=== PATIENT | male | born 1995 | race Caucasian/White ===

== ENCOUNTER 2017-01-02 18:42 | Emergency (ER) | payer OTHER ==
[~2017-01-02] VITALS: Ht 182.9 cm; Wt 72.7 kg
[~2017-01-02 18:42] MED LIST: ABILIFY5 MG OR; CEFTIN500 MG OR; CLONIDINE0.2 MG OR; CONCERTA36 MG OR; CONCERTA54 MG PO; FLONASE NASAL50 MCG; FOCALIN5 MG OR; GEODON80 MG PO; INTUNIV2 MG OR; PREVACID30 M2 OR; ULTRAM50 M1 PO; ZOFRAN ODT4 MG OR
[2017-01-02] MEDS ORDERED: AMOXICILLIN500 MG PO (19:55)
[2017-01-02] MEDS ORDERED: PERCOCET 5/325M1 TAB PO (19:55)
[2017-01-02 21:00] VITALS: BP 135/68
== END 2017-01-02 21:00 | disposition home or self-care (01) | DRG 914 ==
LOC: ED 18:42
DX: S09.93XA Unspecified injury of face, initial encounter (principal); R22.0 Localized swelling, mass and lump, head; K08.89 Other specified disorders of teeth and supporting structures; V86.49XA Person injured while boarding or alighting from other special all-terrain or other off-road motor vehicle, initial encounter; Y93.I9 Activity, other involving external motion; Y92.007 Garden or yard of unspecified non-institutional (private) residence as the place of occurrence of the external cause

== ENCOUNTER 2017-04-02 16:45 | Observation (INO) | payer OTHER ==
[~2017-04-02] VITALS: Ht 188 cm; Wt 66.2 kg
[~2017-04-02 16:45] MED LIST changes: +AMOXICILLIN500 MG PO; +PERCOCET 5/325M1 TAB PO
[2017-04-02 17:38] LABS: HEMATOCRIT 48.6 % (39.0-50.0); IMMATURE GRANULOCYTES 0.3 % (0.0-1.0); MEAN CELL VOLUME 86.9 fL CALC (80.0-100.0); MEAN CORPUSCULAR HGB 30.4 pG CALC (26.0-32.0); NEUT# 8.15 thou/uL (1.82-7.42); RED BLOOD COUNT 5.59 mill/uL (4.70-6.10); RED CELL DISTRI WIDTH 11.5 % (11.5-15.5)
[2017-04-02 17:52] LABS: ALBUMIN 5.3 g/dL (3.2-5.0); ALKALINE PHOSPHATASE 84 u/l (38-126); AMYLASE 126 u/l (30-110); ANION GAP 19 (6-22 (CALC)); BILIRUBIN, TOTAL 0.8 mg/dL (0.0-1.4); BUN 17 mg/dL (8-21); BUN/CREATININE RATIO 16 (12-20 (CALC)); CALCIUM 10.3 mg/dL (8.4-10.2); CARBON DIOXIDE 28 mmol/l (22-30); CHLORIDE 100 mmol/l (95-108); CREATININE 1.1 mg/dL (0.7-1.3); GFR > 60 ML/MIN (>=60 (CALC)); GFR FOR AFR.AMER. > 60 ML/MIN (>=60 (CALC)); GLUCOSE 136 mg/dL (70-106); LIPASE 164 u/l (23-300); POTASSIUM 3.6 mmol/l (3.5-5.1); SGOT/AST 22 u/l (17-59); SGPT/ALT 31 u/l (21-72); SODIUM 144 mmol/l (137-146)
--- NOTE | 2017-04-02 18:00 | NUR ---
PT WITH IV ESTABLISHED, BLOOD DRAWN, MEDS PROVIDED ORDERED. GRANDMOTHER AT BEDSIDE.
--- NOTE | 2017-04-02 19:30 | NUR ---
PT AWARE OF PENDING ADMISSION FOR ACUTE APPENDICITIS. PT PROVIDED NICOTINE PATCH PER REQUEST.
[2017-04-02 20:15] LABS: URINE BLOOD DIPSTICK NEGATIVE (NEGATIVE); URINE GLUCOSE - DIPSTICK NEGATIVE (NEGATIVE); URINE KETONE NEGATIVE (NEGATIVE); URINE LEUK ESTERASE NEGATIVE (NEGATIVE); URINE NITRITE - DIPSTICK NEGATIVE (Negative); URINE PH 6.5 (4.5-8.0); URINE PROTEIN - DIPSTICK TRACE mg/dL (NEG-TRACE)
[2017-04-02 20:17] LABS: URINE BILIRUBIN - DIPSTICK NEGATIVE (NEGATIVE); URINE CLARITY CLEAR; URINE COLOR DK. YELLOW
[2017-04-02 20:19] LABS: BARBITURATES NEGATIVE (NEGATIVE); COCAINE NEGATIVE (NEGATIVE); METHADONE NEGATIVE (NEGATIVE); OXCYCODONE NEGATIVE (NEGATIVE); TETRAHYDROCANNABIONOL POSITIVE (NEGATIVE); TRICYLIC ANTIDEPRESSANTS NEGATIVE (NEGATIVE)
--- NOTE | 2017-04-02 20:54 | NUR ---
REPORT RECEIVED FROM NOEL VELAZQUEZ
--- NOTE | 2017-04-02 21:10 | NUR ---
Admission Note Report Given to: SHERRI VELAZQUEZ Transported by: Wheelchair X Stretcher Transported with: X Nurse Transporter X Patent IV O2 Phlebotomist PT LEFT ER IN STABLE CONDIITON
[2017-04-02 21:26] VITALS: BP 133/54
--- NOTE | 2017-04-02 21:45 | NUR ---
PATIENT ADMITTED FROM ER VIA STRETCHER WITH ER STAFF IN ATTENDANCE. PATIENT ABLE TO GET OFF STRETCHER TO THE STANDING SCALE AND THEN TO BED. PATIENT IS AWAKE ALERT AND ORIENTED ADMITTED FOR ACUTE APPY. PATIENT IS NPO FOR POSSIBLE OR TONIGHT. PATIENT WITH RLQ PAIN THAT STARTED LAST NIGHT AROUND 2100. STATES THAT HE HAD 1 EPISODE OF VOMITTING AND LAST BM WAS LAST NIGHT AND IT WAS"BLACK AND TARRY". IV SITE TO LEFT AC-SITE APPEARS HEALTHY AT THIS TIME. ORIENTED TO ROOM AND SURROUNDINGS. SAFETY PRECAUTIONS REVIEWED WITH PATIENT AND FAMILY MEMBERS. CALL LIGHT IN REACH. WILL CONT TO MONITOR.
--- NOTE | 2017-04-02 22:15 | NUR ---
DR. ALEXANDRE IN TO SEE PATIENT. PATIENT UP TO BR TO SHOWER. IVF NS HUNG ORDERED AND INFUSING AT 150CC/HR VIA LEFT AC SITE. PATIENT REMAINS NPO FOR OR TONIGHT. FAMILY REMIANS AT BEDSIDE. SAFETY PRECAUTIONS REINFORCED. CALL LIGHT IN REACH. WILL CONT TO MONITOR.
--- NOTE | 2017-04-02 22:44 | NUR ---
OR CHECK LIST AND OR CONSENT COMPLETED PER PROTOCOL. PATIENT TO OR VIA STRETCHER WITH OR STAFF AND FAMILY MEMBERS IN ATTENDANCE.
[2017-04-03] VITALS (9 sets, daily range): BP systolic 108–125; BP diastolic 38–68
--- NOTE | 2017-04-03 01:45 | NUR ---
PATIENT RETURNED TO THE ROOM FROM PACU WITH PACU STAFF IN ATTENDANCE. PATIENT IS AWAKE ALERT AND ORIENTEDX3. PATIENT WITH IVF NS PATENT AND INFUSING AT 150CC/HR VIA LEFT AC SITE-APPEARS HEALTHY AT THIS TIME. PATIENT TAKING ICE CHIPS AT THIS TIME-CHARLES WELL. ABD DRESSING X4-CDI AT THIS TIME. SAFETY PRECAUTIONS REINFORCED WITH PATIENT. MONITORING VS PER PROTOCOL. CALL LIGHT IN REACH. WILL CONT TO MONITOR.
--- NOTE | 2017-04-03 02:08 | NUR ---
PATIENT TAKING PO FLUIDS WELL. MEDICATED FOR POST-OP PAIN WITH DILAUDID 0.5MG IVP ORDERED. CONT TO MONITOR VS. CALL LIGHT IN REACH. WILL CONT TO MONITOR.
--- NOTE | 2017-04-03 03:56 | NUR ---
PATIENT RESTING IN BED AND APPEARS SLEEPING WITH EYES CLOSED. CONT TO MONITOR VS AND RECORD. IVF PATENT AND INFUSING ORDERED. CALL LIGHT IN REACH.WILL CONT TO MONITOR.
[2017-04-03 06:03] LABS: HEMATOCRIT 38.3 % (39.0-50.0); HEMOGLOBIN 13.4 g/dl (14.0-18.0); IMMATURE GRANULOCYTES 0.3 % (0.0-1.0); MEAN CELL VOLUME 88.2 fL CALC (80.0-100.0); MEAN CORPUSCULAR HGB 30.9 pG CALC (26.0-32.0); NEUT# 7.08 thou/uL (1.82-7.42); RED BLOOD COUNT 4.34 mill/uL (4.70-6.10); RED CELL DISTRI WIDTH 11.8 % (11.5-15.5)
--- NOTE | 2017-04-03 07:25 | NUR ---
RECEIVED BEDSIDE REPORT FROM EDMOND VELAZQUEZ. RESTING IN BED WITH EYES CLOSED, AWAKENS EASILY. RESPS EVEN AND UNLABORED ON ROOM AIR, TELE MONITOR IN PLACE. VOICES NO NEEDS AT THIS TIME. PLAN OF CARE DISCUSSED. SAFETY PRECAUTIONS REINFORCED. BED IN LOWEST POSITON WITH WHEELS LOCKED. CALL LIGHT WITHIN REACH. ENCOURAGED PT TO CALL FOR ANY NEEDS.
--- NOTE | 2017-04-03 08:13 | NUR ---
AMBULATING IN HALLWAY WITH SYEADY GAIT. TOLERATED WITHOUT C/O ABD PAIN OR NAUSEA.
--- NOTE | 2017-04-03 08:45 | NUR ---
MEDICATED WITH PERCOCET PO FOR C/O 11/18 RLQ PAIN. ENCOURAGED PT TO AMBULATE IN HALLWAY FREQUENTLY. #20 LAC INFUSING WITHOUT DIFFICULTY, SITE APPEARS HEALTHY. CALL LIGHT WITHIN REACH. WILL CONTINUE TO MONITOR.
--- NOTE | 2017-04-03 09:25 | NUR ---
DR ALEXANDRE IN WITH PT, NEW ORDERS RECEIVED.
[2017-04-03 09:53] LABS: HEMATOCRIT 37.9 % (39.0-50.0); HEMOGLOBIN 13.2 g/dl (14.0-18.0); MEAN CELL VOLUME 88.1 fL CALC (80.0-100.0); MEAN CORPUSCULAR HGB 30.7 pG CALC (26.0-32.0); MEAN CORPUSCULAR HGB CONC 34.8 g/L CALC (32.0-36.0); RED BLOOD COUNT 4.3 mill/uL (4.70-6.10); RED CELL DISTRI WIDTH 11.9 % (11.5-15.5)
--- NOTE | 2017-04-03 12:00 | NUR ---
RESTING IN BED WITH EYES CLOSED, AWAKENS EASILY. [id number] PT TO WAKE UP TO EAT LUNCH AND AMBULATED IN HALLWAY. CALL LIGHT WITHIN REACH.
--- NOTE | 2017-04-03 13:32 | NUR ---
AMBULATING IN HALLWAY WITH STEADY GAIT. TOLERATING WITHOUT C/O DISCOMFORT.
--- NOTE | 2017-04-03 15:25 | NUR ---
MEDICATED WITH PERCOCET PO FOR C/O 11/18 RLQ PAIN AND TYMPANIC TEMP 100.6. PO FLUIDS OFFERED. CALL LIGHT WITHIN REACH.
--- NOTE | 2017-04-03 16:57 | NUR ---
Discharge instructions given. Patient verbalizes understanding of same. Discharged in stable condition via Wheelchair to Home with family. All belongings sent with pt.
== END 2017-04-03 16:54 | disposition home or self-care (01) | DRG 343 ==
LOC: ED 16:45 → ED-I 19:42 → ED 19:59 → MS2 20:00
PROVIDERS: Emergency Medicine; ADMIT Surgery; ATTEND Surgery
PROC: 0DTJ4ZZ Resection of Appendix, Percutaneous Endoscopic Approach (ICD-10-PCS; principal; 2017-04-02)
DX: K35.80 Unspecified acute appendicitis (principal); J45.909 Unspecified asthma, uncomplicated; K21.9 Gastro-esophageal reflux disease without esophagitis
CPT/HCPCS: G0378; J2710; Q9967

== ENCOUNTER 2017-06-16 12:25 | Emergency (ER) | payer SELFPAY ==
[~2017-06-16] VITALS: Ht 188 cm; Wt 69.0 kg
[2017-06-16] MEDS ORDERED: BACTRIM DS1 TAB PO (14:20)
[2017-06-16 14:21] VITALS: BP 120/60
== END 2017-06-16 14:30 | disposition home or self-care (01) | DRG 603 ==
LOC: ED 12:25
PROC: 0H9FXZZ Drainage of Right Hand Skin, External Approach (ICD-10-PCS; principal; 2017-06-16)
DX: L02.511 Cutaneous abscess of right hand (principal); W22.8XXA Striking against or struck by other objects, initial encounter; Y93.89 Activity, other specified; Y92.89 Other specified places as the place of occurrence of the external cause

== ENCOUNTER 2017-09-09 20:07 | Emergency (ER) | payer SELFPAY ==
[~2017-09-09] VITALS: Ht 188 cm; Wt 72.0 kg
[~2017-09-09 20:07] MED LIST changes: +BACTRIM DS1 TAB PO
[2017-09-09] MEDS ORDERED: CEPHALEXIN500 M1 PO (20:53)
[2017-09-09] MEDS ORDERED: BACTRIM DS1 TAB PO (20:53)
[2017-09-09] MEDS ORDERED: NO HOME MED (21:06)
[2017-09-09 21:11] VITALS: BP 127/56
== END 2017-09-09 21:11 | disposition home or self-care (01) | DRG 607 ==
LOC: ED 20:07
DX: S80.261A Insect bite (nonvenomous), right knee, initial encounter (principal); L03.115 Cellulitis of right lower limb; W57.XXXA Bitten or stung by nonvenomous insect and other nonvenomous arthropods, initial encounter; L55.0 Sunburn of first degree

== ENCOUNTER 2019-01-07 03:54 | Emergency (ER) | payer SELFPAY ==
[~2019-01-07] VITALS: Ht 188 cm; Wt 71.0 kg
[~2019-01-07 03:54] MED LIST changes: +CEPHALEXIN500 M1 PO; +NO HOME MED
[2019-01-07 04:48] LABS: ALKALINE PHOSPHATASE 104 u/l (38-126); AMYLASE 240 u/l (30-110); ANION GAP 15 (6-22 (CALC)); BILIRUBIN, TOTAL 1.1 mg/dL (0.0-1.4); BUN 15 mg/dL (9-20); BUN/CREATININE RATIO 15 (12-20 (CALC)); CARBON DIOXIDE 29 mmol/l (22-30); CHLORIDE 101 mmol/l (95-108); GFR > 60 ML/MIN (>=60 (CALC)); GFR FOR AFR.AMER. > 60 ML/MIN (>=60 (CALC)); LIPASE 288 u/l (23-300); POTASSIUM 3.6 mmol/l (3.5-5.1); SGOT/AST 23 u/l (17-59); SODIUM 141 mmol/l (137-146); TOTAL PROTEIN 7.9 g/dL (6.3-8.2)
[2019-01-07 04:52] LABS: IMMATURE GRANULOCYTES 0.3 % (0.0-5.0); MEAN CORPUSCULAR HGB 29.9 pG CALC (26.0-32.0); NEUT# 7.55 thou/uL (1.82-7.42); RED BLOOD COUNT 5.49 mill/uL (4.70-6.10); RED CELL DISTRI WIDTH 12.3 % (11.5-15.5)
[2019-01-07 05:15] LABS: HEMATOCRIT 48.3 % (39.0-50.0); HEMOGLOBIN 16.4 g/dl (14.0-18.0)
[2019-01-07] MEDS ORDERED: DOXYCYCL HYC100 MG PO (05:47)
[2019-01-07 06:24] VITALS: BP 118/65
== END 2019-01-07 06:34 | disposition home or self-care (01) | DRG 203 ==
LOC: ED 03:54
PROVIDERS: Family Medicine
DX: J45.909 Unspecified asthma, uncomplicated (principal); K04.7 Periapical abscess without sinus; F17.210 Nicotine dependence, cigarettes, uncomplicated

== ENCOUNTER 2022-01-02 16:17 | Emergency (ER) | payer SELFPAY ==
[2022-01-02] VITALS (16 sets, daily range): BP systolic 117–143; BP diastolic 59–80
[~2022-01-02] VITALS: Ht 188 cm; Wt 70.4 kg
[~2022-01-02 16:17] MED LIST changes: +DOXYCYCL HYC100 MG PO
[2022-01-02 16:55] LABS: IMMATURE GRANULOCYTES 0.2 % (0.0-5.0); MEAN CELL VOLUME 90.4 fL CALC (80.0-100.0); MEAN CORPUSCULAR HGB 30.4 pG CALC (26.0-32.0); MEAN CORPUSCULAR HGB CONC 33.7 g/dL CAL (32.0-36.0); NEUT# 7.39 thou/uL (1.82-7.42); RED BLOOD COUNT 4.37 mill/uL (4.70-6.10); RED CELL DISTRI WIDTH 11.9 % (11.5-15.5)
[2022-01-02 16:57] LABS: HEMATOCRIT 39.5 % (39.0-50.0); HEMOGLOBIN 13.3 g/dl (14.0-18.0)
[2022-01-02 17:15] LABS: ALBUMIN 4.4 g/dL (3.2-5.0); ALKALINE PHOSPHATASE 78 u/l (38-126); BUN 12 mg/dL (9-20); BUN/CREATININE RATIO 12 (12-20 (CALC)); CARBON DIOXIDE 27 mmol/l (22-30); GFR FOR AFR.AMER. > 60 ML/MIN (>=60 (CALC)); GFR OTHER RACES > 60 ML/MIN (>=60 (CALC)); SGOT/AST 22 u/l (17-59); TOTAL PROTEIN 6.9 g/dL (6.3-8.2)
[2022-01-02 17:16] LABS: ANION GAP 14 (6-22 (CALC)); BILIRUBIN, TOTAL 0.6 mg/dL (0.0-1.4); CHLORIDE 102 mmol/l (95-108); POTASSIUM 2.8 mmol/l (3.5-5.1); SODIUM 140 mmol/l (137-146)
[2022-01-02] MEDS ORDERED: BACTRIM DS1 TAB PO (18:04)
[2022-01-02] MEDS ORDERED: KEFLEX500 MG PO (18:04)
== END 2022-01-02 20:03 | disposition home or self-care (01) | DRG 603 ==
LOC: ED 16:17
PROVIDERS: Nurse Practitioner
PROC: 0H9FXZZ Drainage of Right Hand Skin, External Approach (ICD-10-PCS; principal; 2022-01-02)
DX: L02.511 Cutaneous abscess of right hand (principal); L03.011 Cellulitis of right finger; B95.62 Methicillin resistant Staphylococcus aureus infection as the cause of diseases classified elsewhere; J45.909 Unspecified asthma, uncomplicated; F17.200 Nicotine dependence, unspecified, uncomplicated

== ENCOUNTER 2022-04-25 15:05 | Emergency (ER) | payer SELFPAY ==
[~2022-04-25] VITALS: Ht 188 cm; Wt 73.0 kg
[~2022-04-25 15:05] MED LIST changes: +KEFLEX500 MG PO
[2022-04-25 15:30] VITALS: BP 122/58
[2022-04-25 15:46] VITALS: BP 124/54
[2022-04-25 16:00] VITALS: BP 124/59
[2022-04-25] MEDS ORDERED: NAPROXEN500 MG PO (17:40)
[2022-04-25 17:44] VITALS: BP 124/59
== END 2022-04-25 17:51 | disposition home or self-care (01) | DRG 605 ==
LOC: ED 15:05
DX: S50.02XA Contusion of left elbow, initial encounter (principal); V18.0XXA Pedal cycle driver injured in noncollision transport accident in nontraffic accident, initial encounter

== ENCOUNTER 2022-10-06 15:02 | Emergency (ER) | payer SELFPAY ==
[2022-10-06] VITALS (10 sets, daily range): BP systolic 109–130; BP diastolic 48–71
[~2022-10-06] VITALS: Ht 188 cm; Wt 70.0 kg
[~2022-10-06 15:02] MED LIST changes: +NAPROXEN500 MG PO
[2022-10-06] MEDS ORDERED: BACTRIM DS1 TAB PO (17:06)
== END 2022-10-06 17:28 | disposition home or self-care (01) | DRG 605 ==
LOC: ED 15:02
PROC: 0HQEXZZ Repair Left Lower Arm Skin, External Approach (ICD-10-PCS; principal; 2022-10-06)
DX: S61.512A Laceration without foreign body of left wrist, initial encounter (principal); J45.909 Unspecified asthma, uncomplicated; F17.200 Nicotine dependence, unspecified, uncomplicated; W27.0XXA Contact with workbench tool, initial encounter; Y93.89 Activity, other specified; Y92.821 Forest as the place of occurrence of the external cause

== ENCOUNTER 2022-10-14 18:14 | Observation (INO) | payer SELFPAY ==
[~2022-10-14] VITALS: Ht 188 cm; Wt 70.0 kg
[2022-10-14 20:04] VITALS: BP 132/74
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
[2022-10-14 20:16] VITALS: BP 118/52
[2022-10-14 20:31] VITALS: BP 125/51
[2022-10-14 20:46] VITALS: BP 113/71
[2022-10-14 21:48] LABS: BASO% 0.1 % (0-3); EOS% 1.5 % (0-8); HEMATOCRIT 42.6 % (39.0-50.0); HEMOGLOBIN 13.7 g/dl (14.0-18.0); IMMATURE GRANULOCYTES 0.2 % (0.0-5.0); LYMPH% 4.6 % (15-41); MEAN CORPUSCULAR HGB 29.3 pG CALC (26.0-32.0); MEAN CORPUSCULAR HGB CONC 32.2 g/dL CAL (32.0-36.0); MONO% 7.6 % (2-13); NEUT# 13.59 thou/uL (1.82-7.42); RED BLOOD COUNT 4.68 mill/uL (4.70-6.10); RED CELL DISTRI WIDTH 12.3 % (11.5-15.5)
--- NOTE | 2022-10-14 21:50 | NUR ---
PT MEDICATED PER EMAR. PT IS SCREAMING. PT ADVISED THAT MEDS WILL HELP WITH PAIN.
[2022-10-14 22:02] LABS: ALBUMIN 4.4 g/dL (3.2-5.0); ALKALINE PHOSPHATASE 107 u/l (38-126); ANION GAP 9 (6-22 (CALC)); BILIRUBIN, TOTAL 0.4 mg/dL (0.2-1.3); BUN 9 mg/dL (9-20); BUN/CREATININE RATIO 11 (12-20 (CALC)); CARBON DIOXIDE 31 mmol/l (22-30); CHLORIDE 99 mmol/l (95-108); CREATININE 0.8 mg/dL (0.7-1.3); ETHYL ALCOHOL 0 mg/dl (0-30); GFR FOR AFR.AMER. > 60 ML/MIN (>=60 (CALC)); GFR OTHER RACES > 60 ML/MIN (>=60 (CALC)); POTASSIUM 3.1 mmol/l (3.5-5.1); SGOT/AST 27 u/l (17-59); SODIUM 136 mmol/l (137-146); TOTAL PROTEIN 7.4 g/dL (6.3-8.2)
--- NOTE | 2022-10-14 22:10 | NUR ---
REPORT RECEIVED FROM VINCE PROCTOR AND CARE RESUMED BY THIS NURSE. CALL LIGHT WITHIN REACH. PT HAS NO NEEDS OR CONCERNS AT THIS TIME.
--- NOTE | 2022-10-14 23:15 | NUR ---
PT SITTING IN AWAITING RESULTS AT THIS TIME. CALL LIGHT WITHIN REACH.
[2022-10-15] VITALS (9 sets, daily range): BP systolic 125–149; BP diastolic 55–64
--- NOTE | 2022-10-15 00:15 | NUR ---
PT SITTING IN AWAITING RESULTS AT THIS TIME. CALL LIGHT WITHIN REACH.
[2022-10-15 00:33] LABS: URINE BILIRUBIN - DIPSTICK NEGATIVE (NEGATIVE); URINE BLOOD DIPSTICK NEGATIVE (NEGATIVE); URINE COLOR YELLOW; URINE GLUCOSE - DIPSTICK NEGATIVE (NEGATIVE); URINE KETONE NEGATIVE (NEGATIVE); URINE LEUK ESTERASE NEGATIVE (NEGATIVE); URINE PH 5.5 (4.5-8.0); URINE PROTEIN - DIPSTICK TRACE mg/dL (NEG-TRACE); URINE SPECIFIC GRAVITY >=1.030; URINE UROBILINOGEN - DIPSTICK 0.2 E.U./dL (0.2)
[2022-10-15 00:34] LABS: URINE NITRITE - DIPSTICK NEGATIVE (Negative)
--- NOTE | 2022-10-15 01:20 | NUR ---
PT SITTING IN AWAITING RESULTS AT THIS TIME. CALL LIGHT WITHIN REACH.
--- NOTE | 2022-10-15 02:45 | NUR ---
PT ARRIVED TO THE ER VIA WHEELCHAIR. PT A/OX4, CALM AND COOPERATIVE, VSS. PT DENIES SOB ON ROOMAIR, PT REPORTS MODERATE DISCOMFORT TO THE LEFT ARM. LEFT ARM WOUND NOTED. REDNESS AND PURULENT DRAINAGE NOTED. WOUND CLEANED WITH NS, TEFLA 4X4 DRESSING APPLIED AND WRAPPEE WITH KERLIX. RIGHT ARM 20G IV INTACT. PT IS AMBULATORY. BELONGINGS AT BEDSIDE. FALL AND SAFETY PRECAUTIONS IN PLACE, URINAL WITHIN REACH, CALL LIGHT WITH IN REACH
--- NOTE | 2022-10-15 02:50 | NUR ---
Admission Note Report Given to: CASTILLO VELAZQUEZ Transported by: X Wheelchair Stretcher Transported with: X Nurse Transporter X Patent IV O2 Production Support Analyst Location: ICU X [facility]
--- NOTE | 2022-10-15 04:00 | NUR ---
PT RESTING IN BED, VSS, PT DOES NOT APPEAR TO BE IN APPARENT DISTRESS.
--- NOTE | 2022-10-15 08:00 | NUR ---
RECEIVE REPORT FROM CASTILLO VELAZQUEZ. PATIENT RESTING IN BED WITH EYES CLOSED. DOES NOT REFER TO PAIN OR DISCOMFORT AT THIS TIME. STABLE VITAL SIGNS. PT IS EDUCATED ABOUD MEDICATIONS, SKIN CARE AND NURSING PLAN FOR TODAY. PT REFER UNDERSTAND. SAFETY AND FALL PRECAUTIONS IN PLACE. CALL LIGHT WITHIN IN REACH.
--- NOTE | 2022-10-15 12:00 | NUR ---
PATIENT STABLE AT THE TIME. RESTING IN BED CONFORTABLE. SAFETY AND FALL PRECAUTIONS IN PLACE. CALL LIGHT WITHIN IN REACH.
--- NOTE | 2022-10-15 13:03 | NUR ---
S: KYLIE HEIN is a 27 M who presents with a CELLULITIS. All medications in patient's chart were reviewed. O: VS: BP 149/64mmHg, P 82bpm, RR 18bpm,T 97.7F W 70kg, HT 74in, Scr= 0.8mg/dL, CrCl= 139.8ml/min A: Blood culture is pending. Wound culture is pending. P: Patient is on cefepime 2 GM IV Q8H. Vancomycin ordered for pharmacy to dose. Start Vancomycin 1250 MG IV Q12H. Vancomycin trough is drawn before the 4th dose on 10/16/2022 @2030. Vancomycin goal trough is between 10-15 mcg/ml. Pharmacy will follow and or advise on antibiotics use as needed.
--- NOTE | 2022-10-15 16:25 | NUR ---
PATIENT STABLE AT THE TIME OF THIS NOTE. PT IS EDUCATED ABOUD THE PROCEDURE TOMORROW AND SIGN THE CONSET.
--- NOTE | 2022-10-16 00:30 | NUR ---
RECEIVED REPORT FROM NURSE ROMO, PATIENT KPT ON NPO, IV ON RFA G 20 NS @ 100CC/HR INFUSING WELL, NOT IN DISTRESS, CALL LIGHT IN REACH.
--- NOTE | 2022-10-16 03:41 | NUR ---
DUE MAXIPIME INFUSING AT THIS TIME, PATIENT REMAINS ON NPO, DENIES PAIN OR DISCOMFORTS BREATHING UNLABORED CALL LIGHT IN REACH.
[2022-10-16 04:08] VITALS: BP 131/51
[2022-10-16 04:15] VITALS: BP 131/51
[2022-10-16 05:51] LABS: BASO% 0.3 % (0-3); EOS% 4.9 % (0-8); HEMATOCRIT 38.6 % (39.0-50.0); HEMOGLOBIN 12.7 g/dl (14.0-18.0); IMMATURE GRANULOCYTES 0.2 % (0.0-5.0); LYMPH% 18.8 % (15-41); MEAN CELL VOLUME 91.5 fL CALC (80.0-100.0); MEAN CORPUSCULAR HGB 30.1 pG CALC (26.0-32.0); MEAN CORPUSCULAR HGB CONC 32.9 g/dL CAL (32.0-36.0); MONO% 10.3 % (2-13); NEUT# 5.94 thou/uL (1.82-7.42); NEUT% 65.5 % (42-76); RED BLOOD COUNT 4.22 mill/uL (4.70-6.10); RED CELL DISTRI WIDTH 12.5 % (11.5-15.5)
[2022-10-16 06:25] LABS: ALKALINE PHOSPHATASE 76 u/l (38-126); BUN 11 mg/dL (9-20); BUN/CREATININE RATIO 11 (12-20 (CALC)); CARBON DIOXIDE 26 mmol/l (22-30); CHLORIDE 106 mmol/l (95-108); GFR FOR AFR.AMER. > 60 ML/MIN (>=60 (CALC)); GFR OTHER RACES > 60 ML/MIN (>=60 (CALC)); SGOT/AST 20 u/l (17-59); SODIUM 137 mmol/l (137-146)
[2022-10-16 06:26] LABS: ALBUMIN 3.3 g/dL (3.2-5.0); ANION GAP 9 (6-22 (CALC)); POTASSIUM 4.1 mmol/l (3.5-5.1); TOTAL PROTEIN 5.9 g/dL (6.3-8.2)
[2022-10-16 07:06] VITALS: BP 120/65
--- NOTE | 2022-10-16 08:00 | NUR ---
PT IN OPERATING ROOM FOR I&D OF LEFT WRIST.
--- NOTE | 2022-10-16 10:00 | NUR ---
pt ambulated from stretcher in the hallway to bed without any assistance after returning from the operating room.
--- NOTE | 2022-10-16 10:05 | NUR ---
PT BACK UP TO RM 265 FROM OR. PT IS ALERT AND ORIENTED X 3. PT HAS C/O PAIN AT 4/10 ON PAIN SCALE TO LEFT WRIST. LEFT WRIST ELEVATED AND DRESSING INTACT AND FREE FROM DRAINAGE AT THIS TIME. IV SITE TO RFA CLEAN AND INTACT WITH NS @ 80 ML/HR. ORDER FOR REGULAR DIET ENTERED AND, PT GIVEN JELLO AND MALENA ISMA. PT HAS URINAL AT BEDSIDE. PT VS TABLE AND WILL CONTINUE TO MONITOR. PT HAS CALL LIGHT WITHIN REACH AND ALL SAFETY MEASURES IN PLACE AT THIS TIME.
--- NOTE | 2022-10-16 12:00 | NUR ---
PT IN BED WITH HOB , ALERT AND ORIENTED X3. C/O PAIN AT 8/10 ON PAIN SCALE, WILL MEDICATED WITH PRN PAIN MEDICATION. VS STABLE. PT EATING LUNCH, TOLERATING FOOD WELL. PT HAS CALL LIGHT WITHIN REACH AND ALL SAFETY MEASURES IN PLACE AT THIS ITME.
[2022-10-16 16:34] VITALS: BP 126/70
--- NOTE | 2022-10-16 16:43 | NUR ---
PT IN BED AWAKE, ALERT AND ORIENTED. PT HAS MINIMAL PAIN AT 3/10 AT THIS TIME. VS STABLE AND LEFT ARM/ WRIST DRESSING INTACT AND CLEAN AND ELEVATED. CALL LIGHT WITHIN REACH. WILL CONTINUE TO MONITOR PT.
--- NOTE | 2022-10-16 20:00 | NUR ---
RECEIVED REPORT FROM HITESH MCCARTHY. PT RESTING ON BED WATCHING TV; A&O X3. EVEN AND UNLABORED RESPIRATIONS ON SKYLAR. IV SITE HEALTHY AND PATENT. ACTIVE BOWEL SOUNDS X4 QUADRANTS. DRESSING TO LEFT HAND; SATURATED WILL CHANGE TONIGHT. SAFETY PRECAUTIONS IN PLACE WITH CALL LIGHT IN REACH.
[2022-10-16 20:51] VITALS: BP 113/49
[2022-10-17] VITALS (7 sets, daily range): BP systolic 114–167; BP diastolic 43–85
--- NOTE | 2022-10-17 | NUR ---
PT RESTING ON BED, WATCHING TV. IV SITE INFUSING FLUIDS PER ORDER. DRESSING TO LEFT HANF CHANGED; PT TOLERATED WELL. SNACK PROVIDED PER PT'S REQUEST. SAFETY PRECAUTIONS IN PLACE WITH CALL LIGHT IN REACH.
--- NOTE | 2022-10-17 04:20 | NUR ---
PT RESTING ON BED; LOW FOWLERS POSITION. IV SITE HEALTHY AND PATENT; INFUSING FLUIDS PER ORDER. PT C/O PAIN TO LEFT HAND, LEVEL 6/10; ADMINISTERED PAIN MED PER EMAR. SAFETY PRECAUTIONS IN PLACE WITH CALL LIGHT IN REACH.
[2022-10-17 04:39] LABS: BASO% 0.2 % (0-3); EOS% 5.5 % (0-8); HEMATOCRIT 41.4 % (39.0-50.0); HEMOGLOBIN 13.2 g/dl (14.0-18.0); IMMATURE GRANULOCYTES 0.2 % (0.0-5.0); LYMPH% 25.8 % (15-41); MEAN CORPUSCULAR HGB 29.7 pG CALC (26.0-32.0); MEAN CORPUSCULAR HGB CONC 31.9 g/dL CAL (32.0-36.0); MONO% 9.4 % (2-13); NEUT# 5.05 thou/uL (1.82-7.42); NEUT% 58.9 % (42-76); RED BLOOD COUNT 4.45 mill/uL (4.70-6.10); RED CELL DISTRI WIDTH 12.4 % (11.5-15.5)
[2022-10-17 04:46] LABS: ALBUMIN 3.6 g/dL (3.2-5.0); ALKALINE PHOSPHATASE 94 u/l (38-126); ANION GAP 8 (6-22 (CALC)); BUN 10 mg/dL (9-20); BUN/CREATININE RATIO 12 (12-20 (CALC)); CARBON DIOXIDE 29 mmol/l (22-30); CHLORIDE 106 mmol/l (95-108); CREATININE 0.8 mg/dL (0.7-1.3); GFR FOR AFR.AMER. > 60 ML/MIN (>=60 (CALC)); GFR OTHER RACES > 60 ML/MIN (>=60 (CALC)); POTASSIUM 4.3 mmol/l (3.5-5.1); SGOT/AST 25 u/l (17-59); SODIUM 139 mmol/l (137-146); TOTAL PROTEIN 6.5 g/dL (6.3-8.2)
[2022-10-17 04:50] LABS: BILIRUBIN, TOTAL 0.2 mg/dL (0.2-1.3)
--- NOTE | 2022-10-17 07:00 | NUR ---
RECEIVE REPORT FROM MICHAEL PROCTOR.
--- NOTE | 2022-10-17 08:00 | NUR ---
PATIENT RESTING IN BED WITH EYES CLOSED. DOES NOT REFER TO PAIN OR DISCOMFORT AT THIS TIME. STABLE VITAL SIGNS. PT IS EDUCATED ABOUD MEDICATIONS, SKIN CARE AND NURSING PLAN FOR TODAY. PT REFER UNDERSTAND. SAFETY AND FALL PRECAUTIONS IN PLACE. CALL LIGHT WITHIN IN REACH.
--- NOTE | 2022-10-17 12:15 | NUR ---
PATIENT STABLE AT THE TIME. RESTING IN BED CONFORTABLE. SAFETY AND FALL PRECAUTIONS IN PLACE. CALL LIGHT WITHIN IN REACH.
--- NOTE | 2022-10-17 13:09 | NUR ---
S: KYLIE HEIN is a 27 M who presents with SSTI. He has a history of asthma and epilepsy. All medications in patient's chart were reviewed. O: VS: BP 167/43 mmHg, P 62bpm, RR 18bpm,T 98.1F W 70kg, HT 74in, Scr= 0.8,CrCl= 139.8ml/min Vancomycin trough 10/16/22@2122 = 9 A: Blood culture shows no growth after 48 hours Vancomycin trough is subtherapeutic. Increase in dose warranted. P: Patient is on cefepime 2gm Q8H IV and vancomycin 1250 mg IV q12h. Vancomycin ordered for pharmacy to dose. Increase Vancomycin to 1500MG IV Q12H. Vancomycin trough is drawn before the 4th dose on 10/18/22 @ 2230. Vancomycin goal trough is between 10-15 mcg/ml. Pharmacy will follow and or advise on antibiotics use as needed.
--- NOTE | 2022-10-17 16:56 | NUR ---
Patient resting in bed. dressing is ready changed according medical order.
--- NOTE | 2022-10-17 21:49 | NUR ---
RECEIVED BEDSIDE REPORT AT START OF SHIFT. PT LYING IN BED WITH HOB ELEVATED. WATCHING TV. NO C/O OFFERED. CALL LIGHT IN REACH.
[2022-10-18 06:32] LABS: BASO% 0.5 % (0-3); EOS% 8.2 % (0-8); HEMATOCRIT 41.1 % (39.0-50.0); HEMOGLOBIN 13.5 g/dl (14.0-18.0); IMMATURE GRANULOCYTES 0.3 % (0.0-5.0); LYMPH% 30.5 % (15-41); MEAN CELL VOLUME 90.5 fL CALC (80.0-100.0); MEAN CORPUSCULAR HGB 29.7 pG CALC (26.0-32.0); MEAN CORPUSCULAR HGB CONC 32.8 g/dL CAL (32.0-36.0); MONO% 10.2 % (2-13); NEUT# 3.06 thou/uL (1.82-7.42); NEUT% 50.3 % (42-76); RED BLOOD COUNT 4.54 mill/uL (4.70-6.10)
--- NOTE | 2022-10-18 06:45 | NUR ---
DSG CHANGED TO OPEN WOUNDS LEFT HAND/ARM. MOD AMT SEROUS DRAINAGE. MEDICATED PRIOR TO WOUND DSG CHANGE WITH GOOD EFFECT
[2022-10-18 07:00] VITALS: BP 127/54
[2022-10-18 07:09] LABS: ALBUMIN 3.5 g/dL (3.2-5.0); ALKALINE PHOSPHATASE 70 u/l (38-126); ANION GAP 10 (6-22 (CALC)); BUN 12 mg/dL (9-20); BUN/CREATININE RATIO 17 (12-20 (CALC)); CARBON DIOXIDE 29 mmol/l (22-30); CHLORIDE 103 mmol/l (95-108); CREATININE 0.7 mg/dL (0.7-1.3); GFR FOR AFR.AMER. > 60 ML/MIN (>=60 (CALC)); GFR OTHER RACES > 60 ML/MIN (>=60 (CALC)); POTASSIUM 4.7 mmol/l (3.5-5.1); SGOT/AST 23 u/l (17-59); SODIUM 138 mmol/l (137-146); TOTAL PROTEIN 6.4 g/dL (6.3-8.2)
[2022-10-18 07:11] LABS: BILIRUBIN, TOTAL 0.1 mg/dL (0.2-1.3)
--- NOTE | 2022-10-18 08:22 | NUR ---
PERFROMED BEDSIDE REPORT WIT FEEDER TENDER NURSE. PT LAYING DOWN IN BED ON RT SIDE. DRESSING NOTED ON LT HAND. NIGHT NURSE REPORTED PT HAS TWO SURGICAL INCISIONS UNDERNEATH DRESSING. INCISONS ARE NOT VISUAL DUE TO DRESSING. DRESSING IS DRY AND INTACT. PT IS A/OX3, MOOD IS UNPLESEANT AT THIS TIME. PT HAS FLUIDS RUNNING WITH ANTIBIOTIC OER EMAR PIGGY BACKED. ANTIBITOTIC WAS NOT UNCLAMPED AND DID NOT ADMINSITER. NIGHTSHIFT NURSE MADE AWARE OF ISSUE. ADMINISTERING IV PIGGY BACK NOW PER EMAR. PT EDUCATED ON PLAN OF CARE FOR TODAY. CALL LIGHT WITHIN REACH AND SAFETY PRECAUTIONS IN [place].
--- NOTE | 2022-10-18 09:48 | NUR ---
PRESENT IN ROOM WITH DURING ORUNDS. DRESSING ON PT LFT HAND WAS REMOVED AND SURGICAL INCISIONS CLEANED. PT HAS THREE SURGICAL INCISIONS, OPEN. NO DRAINAGE PRESENT, MILD SWELLING STILL PRESENT IN HAND. PT STATES PAIN IS "ALOT BETTER" ORDERED TO REDRESS WITH DRY DRESSING. COMPLETED THAT AND WRAPPED IN KERLIX AND SARITHA BANDAGE. CALL LIGHT WITHIN REACH AND SAFETY PRECAUTIONS IN PLACE.
--- NOTE | 2022-10-18 10:24 | NUR ---
PT WAS OFFERED TO AMBULATE IN ROOM. PT REFUSED. NURSE NOTIFIED. WILL REASSESS.
[2022-10-18] MEDS ORDERED: BACTRIM DS1 TAB PO (12:20)
--- NOTE | 2022-10-18 15:14 | NUR ---
IV site discontinued, cath intact. No edema , no redness, voices no discomfort. Discharge instructions given. Patient verbalizes understanding of same. Discharged in stable condition via Wheelchair to Home with staff. All belongings sent with pt. PT GIVEN PRESCRIPTION BEFORE D/C AND [facility] C[facility]/ DRESSING CHANGE SUPPLIES. PT WAS EDUCATED ON [facility] AND DRESSING CHANGE.
== END 2022-10-18 15:14 | disposition home or self-care (01) | DRG 572 ==
LOC: ED 18:14 → MS2 10-15 00:50 → ED-I 10-15 00:50 → MS2 10-15 02:04
PROVIDERS: Emergency Medicine; Nurse Practitioner Family; ADMIT Internal Medicine; ATTEND Internal Medicine
PROC: 0H9EXZZ Drainage of Left Lower Arm Skin, External Approach (ICD-10-PCS; principal; 2022-10-16)
PROC: 0JBH0ZZ Excision of Left Lower Arm Subcutaneous Tissue and Fascia, Open Approach (ICD-10-PCS; 2022-10-16)
DX: L02.414 Cutaneous abscess of left upper limb (principal); S61.512A Laceration without foreign body of left wrist, initial encounter; L03.114 Cellulitis of left upper limb; F15.10 Other stimulant abuse, uncomplicated; F16.10 Hallucinogen abuse, uncomplicated; F12.10 Cannabis abuse, uncomplicated; J45.909 Unspecified asthma, uncomplicated; G40.909 Epilepsy, unspecified, not intractable, without status epilepticus; F17.210 Nicotine dependence, cigarettes, uncomplicated; T36.8X6A Underdosing of other systemic antibiotics, initial encounter; W27.0XXA Contact with workbench tool, initial encounter; Z91.128 Patient's intentional underdosing of medication regimen for other reason; Z59.00 Homelessness unspecified
CPT/HCPCS: G0378; J0692; J1650; J3370